=== PATIENT | female | born 1995 | race Caucasian/White ===

== ENCOUNTER 2023-05-04 06:55 | Day surgery (SDC) | payer MEDICAID ==
[~2023-05-04] VITALS: Ht 165.1 cm; Wt 79.8 kg
[2023-05-04] MEDS ORDERED: diphenhydrAMINE 50 MG/ML VIAL ONE (07:47)
[2023-05-04] MEDS ORDERED: fentaNYL citrate 0.05 MG/ML VIAL ONE (07:47)
[2023-05-04] MEDS ORDERED: MIDAZOLAM 5 MG/5 ML VIAL ONE (07:47)
== END 2023-05-04 09:30 | disposition home or self-care (01) ==
LOC: MDS 06:55 → MMU 06:56 → MDS 09:30
PROVIDERS: ATTEND Internal Medicine Gastroenterology
DX: K52.9 Noninfective gastroenteritis and colitis, unspecified (principal); K29.50 Unspecified chronic gastritis without bleeding; B96.81 Helicobacter pylori [H. pylori] as the cause of diseases classified elsewhere; R14.0 Abdominal distension (gaseous); K31.89 Other diseases of stomach and duodenum; E11.9 Type 2 diabetes mellitus without complications; Z79.82 Long term (current) use of aspirin; Z79.899 Other long term (current) drug therapy
CPT/HCPCS: 43239; 45380; 82948; 88305; J1200; J2250; J3010; J7030